=== PATIENT | female | born 1995 | race Caucasian/White ===

== ENCOUNTER 2018-01-01 18:50 | Inpatient (IN) | payer MEDICAID ==
[~2018-01-01] VITALS: Ht 167.6 cm; Wt 83.0 kg
[2018-01-01] MEDS ORDERED: DLR(*) 1000 ML BAG 1,000 ML IV PRN (18:53)
[2018-01-01 19:40] VITALS: BP 109/71; Ht 167.6 cm; Wt 83.0 kg
[2018-01-01] MEDS ORDERED: OXYTOCIN 30 UNIT/D5LR 500 ML 500 ML ONE (19:43)
[2018-01-01 19:54] LABS: PLATELET COUNT, AUTOMATED 248 K/uL (150-450)
[2018-01-01] MEDS ORDERED: PREN-127 PO (20:00)
[2018-01-01] MEDS ORDERED: BUTA1TAB14 PO (20:00)
[2018-01-01] MEDS ORDERED: ceFAZolin(*) 2GM/D5W 50ML 50 ML IVPB PRN (20:01)
[2018-01-01] MEDS ORDERED: OXYTOCIN 30 UNIT/D5LR 500 ML 500 ML IV PRN (20:01)
[2018-01-01] MEDS ORDERED: FAMOTIDINE(*) 20MG/50ML PREMIX 50 ML IVPB PRN (20:01)
[2018-01-01] MEDS ORDERED: cefOXitin/DEX(*) 2GM/50ML PREM 50 ML IVPB PRN (20:05)
[2018-01-01] MEDS ORDERED: ACETAMINOPHEN 500 MG TAB PO PRN (20:05)
[2018-01-01] MEDS ORDERED: ONDANSETRON 4 MG/2 ML VIAL IVP PRN (20:05)
[2018-01-01] MEDS ORDERED: LIDOCAINE/SOD BICARB 8.4% SYR SC PRN (20:05)
[2018-01-01] MEDS ORDERED: METOCLOPRAMIDE 10 MG/2 ML SDV IVP PRN (20:05)
[2018-01-01] MEDS ORDERED: LIDOCAINE 1% LOCAL 300 MG/30ML INJ PRN (20:05)
[2018-01-02] VITALS (8 sets, daily range): BP systolic 90–111; BP diastolic 52–67
[2018-01-02] MEDS: fentaNYL CITR 100 MCG/2 ML AMP IVP PRN ×2 (00:21→00:34)
[2018-01-02] MEDS ORDERED: LIDO/EPI 2% MPF 1:200,000 20ML EPI PRN (01:00)
[2018-01-02] MEDS ORDERED: fentaNYL CITR 100 MCG/2 ML AMP IT PRN (01:00)
[2018-01-02] MEDS ORDERED: BUPIVACAINE 0.25% MPF INJ EPI PRN (01:00)
[2018-01-02] MEDS ORDERED: BUPIVACAINE 0.5% INJ 30ML VIAL EPI PRN (01:00)
[2018-01-02] MEDS ORDERED: EPIDURAL KEYS XX PRN (01:00)
[2018-01-02] MEDS ORDERED: FENTANYL/ROPIVACAINE 100 ML BAG EPI PRN (01:00)
[2018-01-02] MEDS ORDERED: LIDOCAINE/PF 2% 200MG/10ML AMP 200 MG/10 ML AMPUL EPI PRN (01:00)
[2018-01-02] MEDS: LR(*) 1000 ML BAG 1,000 ML IV PRN ×3 (01:11→03:27)
--- NOTE | 2018-01-02 02:13 | Anesthesia OB Pre-Anes Eval ---
History of Present Illness Anesthesia Start Date: Jan 02, 2018 Anesthesia Start Time: 01:30 OB Anesthesia Diagnosis: spontaneous labor EDC: Jan 14, 2018 : 1 Para: 0 Vital Signs: Vital Signs 01/01/18 19:40 Temp 98.2 Pulse 66 Resp 18 B/P (MAP) 109/71 (84) Pulse Ox 94 O2 Delivery Room Air Pain Ratin Heart Tones: 131 Result Diagram: 01/01/181941 Height (Inches): 66.00 Weight (Pounds): 183 BMI Calculated: 29.53 Past Medical History Medical History: no pertinent history Surgical History: no surgical history Attended Childbirth Classes?: Yes Hx Anesthesia Reactions: No Hx Family Anesthesia Reaction: No Home Meds Reported Medications Butalb/Acetaminophen/Caff 50-325-40 Mg (FIORICET 50-325-40) 1 Each Tablet, 1-2 TAB PO Q4H, #30 TAB 01/01/18 Vits W-Ca,Fe,Fa(<1MG) ( VITAMINS) 1 Each Tablet, 1 EACH PO DAILY, TAB 01/01/18 Allergies: Coded Allergies: No Known Drug Allergies (Unverified , 01/01/18) Anesthesia OB ROS Neurological: No migraines/headaches, No seizures, No neuropathy, No other ENT: Denies Tooth caps, Denies Loose teeth, Denies Chipped teeth, Denies Dentures, Denies Bridges, Denies Retainers, Denies Veneers, Denies Implants, Denies Tongue ring, Denies Other Pulmonary: No asthma, No smoker (pks/day/yrs), No other Airway Class: ll Cardiovascular ROS: No edema, No arrhythmia, No other GI ROS: clear liquids Last Solids Date: Jan 01, 2018 Last Solids Time: 16:00 ROS: No Herpes, No STD(s), No Liver Disease, No Renal Disease, No Other Endocrine ROS: No diabetes, No gestational diabetes, No thyroid disorder, No other Musculoskeletal ROS: No low back pain, No low back injury, No scoliosis, No other ASA Classification: 2 Assessment and Plan Anesthesia Plan: SO MCKEON CRNA Jan 02, 2018 02:13
--- NOTE | 2018-01-02 02:16 | Procedure Note ---
Anesthetic Placement Note Anesthesia Plan: CSE Permit for Anesthesia Signed: Yes Anesthesia Technique: Patient Sitting Anesthesia Prep: Chlorhexidine Interspace: L 3-4 Local Anesthetic: 1% Lidocaine Amount Local - cc's: 3 Anesthesia Needle: 17g Touhjohanna/Ayannaff Anesthesia Attempts: 1 Loss of Resistance: Normal Saline Depth of GREGORIO (cm): 4.5 Epidural Needle Placement: No CSF, No Blood, No Parasthesia Intrathecal Needle: 27 Gauge Pencan Cerebral Spinal Fluid: Yes, Clear Catheter Insertion (cm): 4 (9 cm @skin) Catheter Type: Munoz - Spring Wound Epidural Dressing: Tegaderm, Tape Anesthesia Tray: Lot Number [id number]), Expiration Date (11/08), Reference Number ([id number]) Anesthesia Medications: Intrathecal Dose: mcg Fentanyl (10), mg Marcaine MPF (2.5), Time (0143) Epidural Test Dose: 1.5 Lido/Epi (1:200,000), Dose - mL (3), Time (0146), Negative Epidural Infusion: 0.2% Ropivicaine, With Fentanyl 2mcg/ml, Start Time: (0157) Epidural Pump Setting: Bolus Dose - mL (8), Lockout - Minutes (20), Maintenance Rate - mL/hr (6), Maximum per Hour - mL (30) Complications: None SO LORD CRNA Jan 02, 2018 02:16
--- NOTE | 2018-01-02 03:30 | Anesthesia Progress Note ---
Progress/Maintenance Anesthesia Note Date: Jan 02, 2018 Anesthesia Note Time: 03:20 Pain Intensity: 6 Pump: On Pump Rate (ML/HR): 6 Sensory Level: L hip pain w cx Motor Level: Bending Knees-Bilateral Dilatation: 8 Position: Left Drug Bolus: 0.25% Marcaine (cc), Other (fent 90 mcg) SO LORD CRNA Jan 02, 2018 03:30
--- NOTE | 2018-01-02 06:31 | History & Physical ---
History of Present Illness Age of Patient: 22 : 1 Para or TPAL: 0 EDC per LMP: Jan 14, 2018 Estimated Gestational Age: 38.2 Chief Complaint labor History of Present Illness Presents for labor and delivery. uncomplicated. She does have a cold sore on her mouth currently. Past Medical, Surgical, Family and Obstetric Histories reviewed. Please see [facility] [place] chart. History Patient's Blood Type: O Positive Rubella Status: Immune Group B Strep Screen: Negative Allergies: Coded Allergies: No Known Drug Allergies (Unverified , 01/01/18) Med Rec Home Meds Reported Medications Butalb/Acetaminophen/Caff 50-325-40 Mg (FIORICET 50-325-40) 1 Each Tablet, 1-2 TAB PO Q4H, #30 TAB 01/01/18 Vits W-Ca,Fe,Fa(<1MG) ( VITAMINS) 1 Each Tablet, 1 EACH PO DAILY, TAB 01/01/18 Review of Systems All Systems Reviewed/Normal: Yes, Except as Noted Exam General Exam Vital Signs Vital Signs Date Time Temp Pulse Resp B/P (MAP) Pulse Ox O2 Delivery O2 Flow Rate FiO2 01/01/18 19:40 98.2 66 18 109/71 (84) 94 Room Air General Apperance: Alert/Awake/No Acute Distress Neuro: No Gross deficits Cardiovascular: Regular Rate and Rhythm Respiratory: No Respiratory Distress Abdomen: Soft, Non-Tender, Non-Distended Extremities: No Cyanosis,Clubbing or Edema Integumentary: Skin Intact without Lesions or Rash Psychological: Alert & Oriented X3 Cervical Dialation: 5 Cervical Effacement (%): 100 Cervical Consistency: Soft Presentation: Vertex Fetus Heart Tone Variabilty: Moderate FHT Accelerations: 15X15 FHT Category: I Medical Decision Making Data Points Result Diagram: 01/01/181941 VTE Prophylasis: Adult Deep Vein Thrombosis/Pulmonary: No Pharmacological Contraindicati: Pt at Low Risk for VTE Mechanical Contraindications: Pt at Low Risk for VTE 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
--- NOTE | 2018-01-02 06:35 | OB Delivery Note ---
Delivery Note Vaginal Delivery Type: Spont. Vaginal Delivery Delivery Date: Jan 02, 2018 Delivery Time: 06:31 Estimated Gestational Age(wks): 38 Delivery Anesthesia: Epidural Sex: Female Weight (gms): 3080 Apgars: 1 Minute (7), 5 Minute (8) Repair Needed: Laceration, Labial, Periurethral Estimated Blood Loss: 300 Delivery Complications: Laceration Notes: Presented in active labor. Progressed through labor well and received epidural at 0101. Was 5 cm on admission and progressed to 6 cm by midnight. Was 8cm by 0230 and completely dilated by 0408. Labored down for an hour and started pushing. Effectively pushing, brought baby to position and delivery of head over periurethral laceration and clitoral laceration. Placenta delivered spontaneous and intact. Repair with 3-0 chromic without complication. Marketing Education Teacher in Attendence: No Copies to: JANE NAM MD ; JANE NAM MD Jan 02, 2018 06:35
[2018-01-02] MEDS ORDERED: BENZOCAINE 20% 60 ML BTL TP PRN (08:50)
[2018-01-02] MEDS ORDERED: MAGNESIUM HYDROXIDE* 30ML UDCP PO PRN (08:50)
[2018-01-02] MEDS ORDERED: ACETAMINOPHEN 325 MG TAB PO PRN (08:50)
[2018-01-02] MEDS ORDERED: HYDROCORTISONE 2.5% CR 30GM TB PR PRN (08:50)
[2018-01-02] MEDS ORDERED: GLYCERIN/WITCH HAZEL LEAF 1 PK TP PRN (08:50)
[2018-01-02] MEDS ORDERED: APAP/HYDROCODONE 325/5 TAB PO PRN (08:50)
--- NOTE | 2018-01-02 09:08 | Anesthesia Progress Note ---
Assessment and Plan Anesthesia Plan: CSE Anesthesia Stop Day: Jan 02, 2018 Anesthesia Stop Time: 06:15 Epidural Catheter Removal: Removed Catheter Intact, Yes, Removed by: (RN) Removal Date: Jan 02, 2018 Condition Vital Signs 01/01/18 19:40 Temp 98.2 Pulse 66 Resp 18 B/P (MAP) 109/71 (84) Pulse Ox 94 O2 Delivery Room Air SO LORD CRNA Jan 02, 2018 09:08
--- NOTE | 2018-01-02 09:42 | Anesthesia Progress Note ---
Assessment and Plan Epidural Catheter Removal: Removed Catheter Intact, Yes, Removed by: (Sheron HIDALGO) Removal Date: Jan 02, 2018 Removal Time: 09:30 SO LORD CRNA Jan 02, 2018 09:42
[2018-01-02] MEDS: IBUPROFEN 800 MG TAB PO SCH ×2 (09:56→16:47)
[2018-01-02] MEDS: DOCUSATE CALCIUM 240 MG CAP PO SCH ×2 (09:56→21:00)
[2018-01-02] MEDS: LANOLIN OINT 7 GM TUBE TP PRN (10:51)
[2018-01-03 01:00] VITALS: BP 122/85
[2018-01-03] MEDS: IBUPROFEN 800 MG TAB PO SCH ×2 (01:10→08:19)
[2018-01-03 04:35] VITALS: BP 110/77
[2018-01-03] MEDS: DOCUSATE CALCIUM 240 MG CAP PO SCH (08:19)
--- NOTE | 2018-01-03 08:20 | OB/GYN Progress Note ---
OB Subjective Progress Notes Subjective Feeling fine. Ambulating and voiding well. Moderate lochia, decreasing. Mild perineal pain, relieved by Ibuprofen. Wants to go home today. Baby doing well. OB Objective Physical Exam Vital Signs Date Time Temp Pulse Resp B/P (MAP) Pulse Ox O2 Delivery O2 Flow Rate FiO2 01/03/18 04:35 97.8 77 18 110/77 (88) Room Air 01/02/18 08:30 92 l Intake and Output 01/03/18 07:00 Intake Total 480 ml Output Total 1200 ml Balance -720 ml Intake Oral 480 ml Output Urine Total 1200 ml # Voids 2 General Appearance: Alert/Awake/No Acute Distress Cardiovascular: Regular Rate and Rhythm, No Edema Respiratory: No Respiratory Distress, Clear to Auscultation Abdomen: Soft, Non-Tender, Non-Distended, Bowel Sounds Present, Fundus Firm (at U-3) Extremities: No Cyanosis,Clubbing or Edema; No Tender Calves Integumentary: Skin Intact without Lesions or Rash Psychological: Alert & Oriented X3, Appropriate Mood & Affect Result Diagram: 01/03/18 0551 Assessment and Plan Problems: (1) Encounter for care and examination of mother immediately after delivery Assessment & Plan: Doing well . Ready for discharge, if baby also able to go home. (2) Labor without complication Status: Resolved (3) 38 weeks gestation of Status: Resolved ORAL BOSS MD Jan 03, 2018 08:20
--- NOTE | 2018-01-03 08:23 | OB/GYN Discharge Summary ---
Discharge Summary Reason for Hosp/Final Diag: (1) Encounter for care and examination of mother immediately after delivery Hospital Course & Plan: After spontaneous labor with normal vaginal delivery of a healthy female , the patient had no complications. She was discharged home less than 48 hours after delivery, in good condition. (2) Labor without complication Status: Resolved (3) 38 weeks gestation of Status: Resolved Lates Vital Signs Vital Signs Date Time Temp Pulse Resp B/P (MAP) Pulse Ox O2 Delivery O2 Flow Rate FiO2 01/03/18 04:35 97.8 77 18 110/77 (88) Room Air 01/02/18 08:30 92 Weight (Pounds): 183 Result Diagram: 01/03/18 0551 Condition: Improved Discharge: Home, Self Half-Way Meds Reported Medications Butalb/Acetaminophen/Caff 50-325-40 Mg (FIORICET 50-325-40) 1 Each Tablet, 1-2 TAB PO Q4H, #30 TAB 01/01/18 Vits W-Ca,Fe,Fa(<1MG) ( VITAMINS) 1 Each Tablet, 1 EACH PO DAILY, TAB 01/01/18 Follow up with: Dr. Mills [phone] Copies to: JANE MILLS MD ; ORAL BOSS MD Jan 03, 2018 08:23
[2018-01-03] MEDS ORDERED: IBUP800T37 PO (08:26)
[2018-01-03] MEDS ORDERED: DOCU240C67 PO (08:26)
[2018-01-03] MEDS ORDERED: Lanolin TP (08:26)
[2018-01-03] MEDS ORDERED: TUCKS TP (08:26)
[2018-01-03] MEDS ORDERED: Benzocaine 60 ML TP (08:26)
[2018-01-03 08:27] VITALS: BP 113/75
--- NOTE | 2018-01-03 10:37 | Anesthesia Post Eval Note ---
Anesthesia Post Eval Note Vital Signs 01/03/18 01/03/18 04:35 08:27 Temp 98.2 Pulse 83 Resp 18 B/P (MAP) 113/75 (88) Pulse Ox 95 O2 Delivery Room Air Pt able to participate in Eval: Yes Cardiovascular Status: Satisfactory Respiratory Status: Satisfactory Pain Managment: Satisfactory PO Nausea/Vomiting: Satisfactory Temperature Management: Satisfactory Mental Status: Satisfactory, Alert, Oriented X3 Post-Op Hydration Status: Satisfactory, Tolerating PO Well, Voiding w/o Difficulty Anesthesia Type: SO MCKEON CRNA Jan 03, 2018 10:37
[2018-01-03] MEDS: LANOLIN OINT 7 GM TUBE TP PRN (11:35)
== END 2018-01-03 12:00 | disposition home or self-care (01) | DRG 807 ==
LOC: INTOOBSV 18:50 → UNDOADMOB 18:50 → OB 18:50 → OBSVTOIN 18:50
PROVIDERS: ADMIT Student in an Organized Health Care Education/Training Program; ATTEND Student in an Organized Health Care Education/Training Program
PROC: 10E0XZZ Delivery of Products of Conception, External Approach (ICD-10-PCS; principal; 2018-01-02)
PROC: 0UQMXZZ Repair Vulva, External Approach (ICD-10-PCS; 2018-01-02)
DX: O44.43 Low lying placenta NOS or without hemorrhage, third trimester (principal); Z37.0 Single live birth; Z3A.38 38 weeks gestation of pregnancy; O71.82 Other specified trauma to perineum and vulva
CPT/HCPCS: 36415; 85025; 85027; 86703; 86850; 86900; 86901; J3010; J7120; S0020

== ENCOUNTER → 2018-01-01 | Outpatient (REF) | payer MEDICAID ==
[~2018-01-01] MED LIST: BUTA1TAB14 PO; PREN-127 PO
== END ==
LOC: ZZSENDIN 16:14
PROVIDERS: ATTEND Physician Assistant
DX: O42.90 Premature rupture of membranes, unspecified as to length of time between rupture and onset of labor, unspecified weeks of gestation (principal)
CPT/HCPCS: 84112